=== PATIENT | male | born 1965 | race Hispanic/Latino ===

== ENCOUNTER 2016-12-23 12:57 | Emergency (ER) | payer SELFPAY ==
[2016-12-23 13:06] VITALS: TEMP 98
--- NOTE | 2016-12-23 13:30 | ED PDOC ---
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 Patient came by ambulance for evaluation and removal of tooth. History acquired by language line interpretor. ) Past Medical History Reviewed: Historical Data, Nursing Documentation, Vital Signs Vital Signs: Last Vital Signs Temp 98 F 12/23/16 13:03 Pulse 98 H 12/23/16 13:03 Resp 18 12/23/16 13:03 BP 136/84 12/23/16 13:03 Pulse Ox 100 12/23/16 13:03 - Family History Family History: States: No Known Family Hx - Allergies Allergies/Adverse Reactions: Allergies Allergy/AdvReac Type Severity Reaction Status Date / Time Unobtainable Allergy Verified 12/23/16 13:03 Review of Systems ROS Statement: Except As Marked, All Systems Reviewed And Found Negative Physical Exam - Reviewed Nursing Documentation Reviewed: Yes Vital Signs Reviewed: Yes - Physical Exam Appears: Positive for: Well, Non-toxic, No Acute Distress Head Exam: Positive for: ATRAUMATIC, NORMAL INSPECTION, NORMOCEPHALIC Skin: Positive for: Normal Color, Warm, DRY Eye Exam: Positive for: EOMI, Normal appearance, PERRL ENT: Positive for: Normal ENT Inspection, Other (loose dentition noted right lower incisor. Moderate dental decay noted. No gingival irritation/swelling noted.) Neck: Positive for: Normal, Painless ROM Cardiovascular/Chest: Positive for: Regular Rate, Rhythm Respiratory: Positive for: CNT, Normal Breath Sounds Gastrointestinal/Abdominal: Positive for: Normal Exam, Bowel Sounds, Soft Back: Positive for: Normal Inspection Extremity: Positive for: Normal ROM Neurologic/Psych: Positive for: Alert, Oriented - ECG O2 Sat by Pulse Oximetry: 100 Disposition - Clinical Impression Clinical Impression: Loosening of tooth - Disposition Referrals: Saul Guerrero DDS [Staff Provider] - Disposition: Routine/Home Disposition Time: 13:33 Condition: FAIR Instructions: Dental Caries (ED) Forms: Exit Games (Cym[employer])
[2016-12-23 14:53] VITALS: BP 118/66; PULSE 86; RESP 20; O2SAT 98
== END 2016-12-23 14:53 | disposition home or self-care (01) ==
LOC: H.ER 12:57
DX: K08.89 Other specified disorders of teeth and supporting structures (principal)